=== PATIENT | female | born 1970 | race Caucasian/White ===

== ENCOUNTER 2018-03-26 09:44 | Outpatient (CLI) ==
--- NOTE | 2018-03-26 10:23 | DI ---
EXAM: Five views of the cervical spine HISTORY: Neck pain. COMPARISON: MRI cervical spine 11/08/2009 FINDINGS: There is straightening of the cervical spine. There is no acute compression fracture or cruz bluxation. There is no lytic or blastic lesion. There is minimal facet arthropathy. Posterior proc esses are normal. Neural foramen appear patent. Odontoid process is unremarkable. IMPRESSION: Mild straightening of the cervical spine is nonspecific. There is no acute abnormality or compression fracture of the cervical spine.
== END 2018-03-26 09:45 | disposition home or self-care (01) ==
LOC: RAD 09:44
PROVIDERS: ATTEND Family Medicine
DX: G43.009 Migraine without aura, not intractable, without status migrainosus (principal); G44.209 Tension-type headache, unspecified, not intractable; M54.2 Cervicalgia

== ENCOUNTER 2018-12-25 17:08 | Outpatient (CLI) | END 2018-12-25 17:09 | disposition home or self-care (01) | LOC: LAB 17:08 | PROVIDERS: ATTEND Family Medicine | DX: R50.9 Fever, unspecified (principal); W57.XXXA Bitten or stung by nonvenomous insect and other nonvenomous arthropods, initial encounter | CPT/HCPCS: 36415; 80053; 81001; 85025; 86757; 87086; 87798 ==